=== PATIENT | male | born 1975 | race Caucasian/White ===

== ENCOUNTER 2016-09-19 15:24 | Emergency (ER) | payer MEDICAID ==
[~2016-09-19] VITALS: Ht 172.7 cm; Wt 95.5 kg
[2016-09-19 16:45] VITALS: BP 146/91
[2016-09-19] MEDS ORDERED: DiphenhydrAMINE HCL 50 MG/ML VIAL IM ONE (16:45)
== END 2016-09-19 16:54 | disposition home or self-care (01) ==
LOC: EMS 15:27
DX: B86 Scabies (principal); R03.0 Elevated blood-pressure reading, without diagnosis of hypertension
CPT/HCPCS: 96372; 99283; J1200